=== PATIENT | female | born 1945 | race Caucasian/White ===

== ENCOUNTER 2017-06-05 13:12 | Emergency (ER) | payer MEDICARE, OTHER ==
[~2017-06-05] VITALS: Ht 152.4 cm; Wt 69.8 kg
[~2017-06-05 13:12] MED LIST: METO50TA PO; PRIN20TA2 PO; TRAM50 PO
[2017-06-05] MEDS ORDERED: DESI150T PO (13:39)
[2017-06-05] MEDS ORDERED: METO50TA PO (13:39)
[2017-06-05] MEDS ORDERED: LISI40TA PO (13:39)
[2017-06-05 13:40] VITALS: BP 185/93; PULSE 67; RESP 20; TEMP 98.7; O2SAT 97
[2017-06-05] MEDS ORDERED: VIST25CA PO (14:23)
--- NOTE | 2017-06-05 14:29 | PD ---
HPI Chief Complaint: Anxiety Time Seen by Provider: 14:14 Travel History International Travel<30 days: No Contact w/Intl Traveler<30days: No Traveled to known affect area: No History of Present Illness HPI The patient was seen and examined in the presence of the nurse. She complains of anxiety and panic. She used to take to zipper mean for control of this issue but cannot longer afford it and has been off it for a while. She saw her primary physician 2 days ago but she did not get a replacement. She was nervous and anxious. She is calm down since coming to the ER. Symptoms are now mild. No suicidal ideation or chest pain or shortness of breath. No alleviating factors. She has been battling sinus problems lately. PFSH Past Medical History Arthritis: Yes ("osteo") Anxiety: Yes Depression: Yes Cardiovascular Problems: Yes High Cholesterol: Yes COPD: Yes Diabetes: No Diminished Hearing: No GERD: Yes Hypertension: Yes Immunizations Current: Yes ?: Not Menopausal: Yes Past Surgical History Eye Surgery: Yes (LEFT EYE-CROSS EYE) Social History Alcohol Use: Yes (COUPLE TIMES PER WEEK) Tobacco Use: No Substance Use: No Allergies-Medications (Allergen,Severity, Reaction): Coded Allergies: Codeine (Verified Adverse Reaction, Severe, NAUSEA, 06/05/17) Reported Meds & Prescriptions Reported Meds & Active Scripts Active Vistaril (Hydroxyzine Pamoate) 25 Mg Cap 25 Mg PO Q6H PRN Reported Desipramine (Desipramine HCl) 150 Mg Tab 150 Mg PO DAILY Lisinopril 40 Mg Tab 40 Mg PO DAILY Metoprolol Tartrate 50 Mg Tab 50 Mg PO BID Review of Systems General / Constitutional: No: Fever HENT: No: Headaches Cardiovascular: No: Chest Pain or Discomfort Gastrointestinal: No: Vomiting Physical Exam Narrative GENERAL: Well-nourished, well-developed patient in no apparent distress. SKIN: Focused skin assessment reveals no rash and nodules. Skin is Warm and dry. HEAD: Atraumatic. Normocephalic. EYES: Pupils equal and round. No scleral icterus. No injection or drainage. ENT: No nasal bleeding or discharge. Mucous membranes pink and moist. NECK: Trachea midline. No JVD. CARDIOVASCULAR: Regular rate and rhythm. No murmur appreciated. RESPIRATORY: No accessory muscle use. Clear to auscultation. Breath sounds equal bilaterally. GASTROINTESTINAL: Abdomen soft, non-tender, nondistended. Hepatic and splenic margins not palpable. MUSCULOSKELETAL: No obvious deformities. No clubbing. No cyanosis. No edema. NEUROLOGICAL: Awake and alert. No obvious cranial nerve deficits. Motor grossly within normal limits. Normal speech. PSYCHIATRIC: Slightly anxious mood and affect; insight and judgment normal. Data Data Last Documented VS Vital Signs Date Time Temp Pulse Resp B/P Pulse Ox O2 Delivery O2 Flow Rate FiO2 06/05/17 13:40 98.7 67 20 185/93 97 MDM Medical Decision Making Medical Screen Exam Complete: Yes Emergency Medical Condition: Yes Medical Record Reviewed: Yes Differential Diagnosis Anxiety, panic attack, adjustment disorder Narrative Course I have reviewed the patient's electronic medical record. Patient requesting medication for anxiety I have written some Vistaril to use as needed Warned her about sedation The patient was advised to follow up with their physician and return if they worsen. Diagnosis Primary Impression: Anxiety attack Additional Instructions: The patient was advised to follow up with their physician and return if they worsen. The patient was warned about potential sedation for the medications they will receive on prescription. Med/Other Pt SpecificInfo: Prescription(s) given Scripts Hydroxyzine Pamoate (Vistaril)25 Mg Cap25 Mg PO Q6H PRN (ANXIETY) #20 CAP Ref 0 Prov:Fredy Tellez MD 06/05/17 Disposition: 01 DISCHARGE HOME Condition: Stable Fredy Tellez MD Jun 05, 2017 14:29
== END 2017-06-05 14:39 | disposition home or self-care (01) ==
LOC: PHEFT 13:12
DX: F41.8 Other specified anxiety disorders (principal); I10 Essential (primary) hypertension; E78.00 Pure hypercholesterolemia, unspecified; Z87.39 Personal history of other diseases of the musculoskeletal system and connective tissue; Z86.59 Personal history of other mental and behavioral disorders; Z86.79 Personal history of other diseases of the circulatory system; Z87.09 Personal history of other diseases of the respiratory system; Z87.19 Personal history of other diseases of the digestive system
CPT/HCPCS: 99283